=== PATIENT | male | born 1970 | race Caucasian/White ===

== ENCOUNTER 2017-12-28 10:25 | Inpatient (IN) | payer SELFPAY ==
[2017-12-28] MEDS ORDERED: NICARDIPINE HCL RTU, ISO-OS 20 MG/200 ML RTUINJ IV ONE (10:57)
[2017-12-28] MEDS ORDERED: NICARDIPINE HCL RTU, ISO-OS 20 MG/200 ML RTUINJ IV PRN ×2 (11:04→11:57)
--- NOTE | 2017-12-28 11:08 | RADIOLOGY REPORT (SQ) ---
EXAM DESCRIPTION: CT HEAD WITHOUT COMPLETED DATE/TIME: 12/28/2017 10:51 am REASON FOR STUDY: left sided weakness COMPARISON: None. TECHNIQUE: Axial images acquired through the brain without intravenous contrast. Images reviewed wi th bone, brain and subdural windows. Additional sagittal and coronal reconstructions were generated. Images stored on PACS. All CT scanners at this facility use dose modulation, iterative reconstruction, and/or weight based d osing when appropriate to reduce radiation dose to as low as reasonably achievable (ALARA). [facility]: Dose Right [facility]: CareDose [facility]: Dose Right [facility]: Teradose 4D [facility]: Smart CogniK RADIATION DOSE: CT Rad equipment meets quality standard of care and radiation dose reduction techniq ues were employed. CTDIvol: 53.2 mGy. DLP: 1017 mGy-cm. mGy. LIMITATIONS: None. FINDINGS: VENTRICLES: Normal size and contour. CEREBRUM: No masses. No hemorrhage. No midline shift. No evidence for acute infarction. Normal gra y/white matter differentiation. No areas of low density in the white matter. CEREBELLUM: No masses. No hemorrhage. No alteration of density. No evidence for acute infarction. EXTRAAXIAL SPACES: No fluid collections. No masses. ORBITS AND GLOBE: No intra- or extraconal masses. Normal contour of globe without masses. CALVARIUM: No fracture. PARANASAL SINUSES: No fluid or mucosal thickening. SOFT TISSUES: No mass or hematoma. OTHER: No other significant finding. IMPRESSION: NORMAL BRAIN CT WITHOUT CONTRAST. EVIDENCE OF ACUTE STROKE: NO. COMMENT: Pertinent positive or negative findings of the imaging study reported as a CRITICAL EXAM gaby FOSTER DO at11:02 on 12/28/2017. Category of Critical Exam: Stroke alert Quality ID # [id number]: Final reports with documentation of one or more dose reduction techniques (e.g., Au tomated exposure control, adjustment of the mA and/or kV according to patient size, use of iterative reconstruction technique) TECHNICAL DOCUMENTATION: JOB ID: [id number] ([employer])- All Rights Reserved Reading location - IP/workstation name: [email or web address]
--- NOTE | 2017-12-28 11:10 | ER Document Report ---
ED General - General Chief Complaint: Weakness Stated Complaint: LEFT SIDED WEAKNESS Time Seen by Provider: 12/28/17 11:04 Mode of Arrival: Ambulatory Information source: Patient Notes: Note: I met the patient and started my evaluation while the patient was in CT scan. He was brought to CT directly from triage. This is a 47-year-old man history of hypertension (noncompliant with medicines) we will woke up with a left leg cramp. Patient states shortly after he experienced left arm and left leg weakness. Patient denies headache or any speech problems. He is a right-handed dominant. He denies any chest pain, shortness of breath. Patient states that these symptoms started at 8:30 AM. He states that he came to the hospital with his . He states that his drove. He does report that he felt off balance because of the left-sided weakness. Patient denies chest pain, shortness of breath, headache. Occasions: None currently. He has been on lisinopril in the past. Cigarettes: Denies, he does smoke cigars Surgeries: Knee surgery, splenectomy [facility] physician: Dr. Madrid at [facility] TRAVEL OUTSIDE OF THE [place] IN LAST 30 DAYS: No - HPI Onset: Just prior to arrival Onset/Duration: Sudden Quality of pain: No pain Severity: None Pain Level: Denies Associated symptoms: denies: Chest pain, Fever, Shortness of breath Exacerbated by: Denies Relieved by: Denies Similar symptoms previously: No Recently seen / treated by doctor: No - Related Data Allergies/Adverse Reactions: No Known Allergies Allergy (Verified 12/28/17 10:26) Past Medical History - General Information source: Patient - Social History Smoking Status: Current Some Day Smoker Cigarette use (# per day): No Chew tobacco use (# tins/day): Yes - Cigars Smoking Education Provided: No Frequency of alcohol use: None Drug Abuse: None Lives with: Family Family History: Reviewed & Not Pertinent Patient has suicidal ideation: No Patient has homicidal ideation: No - Past Medical History Cardiac Medical History: Reports: Hx Hypertension Pulmonary Medical History: Reports: None EENT Medical History: Reports: None Neurological Medical History: Reports: None Endocrine Medical History: Reports: None Renal/ Medical History: Reports: None Malignancy Medical History: Reports None GI Medical History: Reports: None Musculoskeletal Medical History: Reports None Skin Medical History: Reports None Psychiatric Medical History: Reports: None Traumatic Medical History: Reports: Hx Spleen Laceration/Rupture Infectious Medical History: Reports: None Surgical Hx: Negative - Immunizations Immunizations up to date: No Hx Diphtheria, Pertussis, Tetanus Vaccination: Yes Hx Pneumococcal Vaccination: 02/20/15 Review of Systems - Review of Systems Constitutional: denies: Chills, Fever EENT: No symptoms reported Cardiovascular: No symptoms reported Respiratory: No symptoms reported Gastrointestinal: No symptoms reported Genitourinary: No symptoms reported Male Genitourinary: No symptoms reported Musculoskeletal: No symptoms reported Skin: No symptoms reported Hematologic/Lymphatic: No symptoms reported Neurological/Psychological: See HPI Physical Exam - Vital signs Vitals: Temp Pulse Resp BP Pulse Ox 97.6 F 94 16 215/137 H 97 12/28/17 10:31 12/28/17 10:31 12/28/17 10:31 12/28/17 10:31 12/28/17 10:31 Notes: Physical exam: GENERAL: Is a 47-year-old man, he is alert and oriented 3, he is in no acute distress. He is noted to be markedly hypertensive at 215/137. HEAD: Atraumatic, normocephalic. EYES: Pupils equal round and reactive to light, extraocular movements intact, sclera anicteric, conjunctiva are normal. ENT: TMs normal, nares patent, oropharynx clear without exudates. Moist mucous membranes. NECK: Normal range of motion, supple without obvious mass or JVD. LUNGS: Breath sounds clear to auscultation bilaterally and equal. No wheezes rales or rhonchi. HEART: Regular rate and rhythm without murmurs, rubs or gallops. ABDOMEN: Soft, normoactive bowel sounds. No tenderness to palpation. No guarding, no rebound. No masses appreciated. EXTREMITIES: Normal range of motion, no pitting or edema. No clubbing or cyanosis. NEUROLOGICAL: Cranial nerves II through XII grossly intact. Normal speech, he is alert and keenly responsive, he knows the month and his age, he is able to perform commands appropriately, his gaze is normal, his visual calvin are normal , there is no facial pallor palsy, he does have left sided arm and leg drift but they do not touch the bed, his right side is normal, there is no limb ataxia (finger to nose is good), there is no sensory deficit, his picture description, object naming and sentence reading is good, there is no dysarthria or extension. His NIH is 2. PSYCH: Normal mood, normal affect. SKIN: Warm, Dry, normal turgor, no rashes or lesions noted. Course - Re-evaluation Re-evalutation: 12/28/17 11:09 The patient is excluded from thrombolytics based upon marked hypertensive crisis. He is being placed on IV nicardipine. 12/28/17 13:22 Patient was placed on IV nicardipine and the blood pressure was weaned down. Eventually, the drip was stopped and he was started on oral medicine. He currently denies any headache.. EKG is sinus rhythm with evidence just of of LVH which is not surprising given his untreated hypertension. Patient is to be admitted to the hospital. I have discussed the case with Dr. Bowman who will admit the patient to the [facility]. - Vital Signs Vital signs: Temp Pulse Resp BP Pulse Ox 97.6 F 93 16 130/77 H 94 12/28/17 10:31 12/28/17 17:25 12/28/17 18:11 12/28/17 18:11 12/28/17 18:11 - Laboratory Result Diagrams: 12/28/17 10:56 12/28/17 10:56 Laboratory results interpreted by me: 12/28/17 12/28/17 12/28/17 10:53 10:56 10:56 WBC 13.3 H Absolute Neutrophils 8.5 H BUN 26 H Creatinine 1.44 H Est GFR (Non-Af Amer) 53 L Glucose 149 H POC Glucose 144 H Creatine Kinase 302 H CK-MB (CK-2) Total Protein 8.5 H 12/28/17 10:56 WBC Absolute Neutrophils BUN Creatinine Est GFR (Non-Af Amer) Glucose POC Glucose Creatine Kinase CK-MB (CK-2) 4.56 H Total Protein - Diagnostic Test Radiology reviewed: Image reviewed, Reports reviewed - Head CT shows no bleed. Chest x-ray is clear. - EKG Interpretation by Me Rate: Normal Rhythm: NSR - EKG shows normal sinus rhythm with a ventricular rate of 89, ST/T- wave changes consistent with LVH Critical Care Note - Critical Care Note Total time excluding time spent on procedures (mins): 60 Discharge - Discharge Clinical Impression: Hypertensive emergency, CVA Condition: Stable Disposition: ADMITTED INPATIENT Admitting Provider: Hospitalist - Dr bowman Unit Admitted: [facility]
--- NOTE | 2017-12-28 11:11 | RADIOLOGY REPORT (SQ) ---
EXAM DESCRIPTION: CHEST SINGLE VIEW COMPLETED DATE/TIME: 12/28/2017 10:41 am REASON FOR STUDY: left sided weakness COMPARISON: None. EXAM PARAMETERS: NUMBER OF VIEWS: One view. TECHNIQUE: Single frontal radiographic view of the chest acquired. RADIATION DOSE: NA LIMITATIONS: None. FINDINGS: LUNGS AND PLEURA: No opacities, masses or pneumothorax. No pleural effusion. MEDIASTINUM AND HILAR STRUCTURES: No masses. Contour normal. HEART AND VASCULAR STRUCTURES: Heart normal in size. Normal vasculature. BONES: No acute findings. HARDWARE: None in the chest. OTHER: No other significant finding. IMPRESSION: NO ACUTE RADIOGRAPHIC FINDING IN THE CHEST. TECHNICAL DOCUMENTATION: JOB ID: [id number] [employer]- All Rights Reserved Reading location - IP/workstation name: [email or web address]
[2017-12-28 11:18] LABS: ABSOLUTE BASOPHILS # (AUTO) 0.1 10^3/uL (0.0-0.2); ABSOLUTE EOSINOPHILS # (AUTO) 0.2 10^3/uL (0.0-0.6); ABSOLUTE LYMPHOCYTES (AUTO) 3.2 10^3/uL (0.5-4.7); ABSOLUTE MONOCYTES (AUTO) 1.4 10^3/uL (0.1-1.4); ABSOLUTE NEUT (AUTO) 8.5 10^3/uL (1.7-8.2); BASOPHILS % (AUTO) 0.4 % (0-2); EOSINOPHILS % (AUTO) 1.4 % (0-6); HEMATOCRIT 43.5 % (37.9-51.0); HEMOGLOBIN 14.8 g/dL (13.5-17.0); LYMPHOCYTES % (AUTO) 24.2 % (13-45); MEAN CORPUSCULAR HEMOGLOBIN 30.7 pg (27.0-33.4); MEAN CORPUSCULAR VOLUME 90 fl (80-97); MONOCYTES % (AUTO) 10.3 % (3-13); PLATELET COUNT 308 10^3/uL (150-450); RED BLOOD COUNT 4.81 10^6/uL (4.35-5.55); RED CELL DISTRIBUTION WIDTH 13.3 % (11.5-14.0); SEGMENTED NEUTROPHILS % (AUTO) 63.7 % (42-78); TOTAL CELLS COUNTED % (AUTO) 100 %; WHITE BLOOD COUNT 13.3 10^3/uL (4.0-10.5)
[2017-12-28 11:21] LABS: INTERNATIONAL RATION (INR) 0.89; PROTHROMBIN TIME 12.5 SEC (11.4-15.4)
[2017-12-28 11:22] LABS: PARTIAL THROMBOPLASTIN TIME 29.3 SEC (23.5-35.8)
[2017-12-28 11:45] LABS: ALANINE AMINOTRANSFERASE 44 U/L (21-72); ALBUMIN 4.7 g/dL (3.5-5.0); ALKALINE PHOSPHATASE 81 U/L (38-126); ANION GAP 12 (5-19); ASPARTATE AMINO TRANSFERASE 36 U/L (17-59); BILIRUBIN,DIRECT 0.3 mg/dL (0.0-0.4); BILIRUBIN,TOTAL 0.6 mg/dL (0.2-1.3); BLOOD UREA NITROGEN 26 mg/dL (7-20); CALCIUM 9.3 mg/dL (8.4-10.2); CARBON DIOXIDE 29 mmol/L (22-30); CHLORIDE 98 mmol/L (98-107); CREATINE KINASE 302 U/L (55-170); GLUCOSE 149 mg/dL (75-110); POTASSIUM 3.6 mmol/L (3.6-5.0); SODIUM 139.2 mmol/L (137-145); TOTAL PROTEIN 8.5 g/dL (6.3-8.2)
[2017-12-28 11:57] LABS: CREATINE KINASE MB 4.56 ng/mL (<4.55)
[2017-12-28 11:58] LABS: TROPONIN I 0.043 ng/mL
[2017-12-28] MEDS ORDERED: LORAZEPAM 1 MG TABLET PO ONE (12:16)
[2017-12-28] MEDS ORDERED: DILTIAZEM HCL 60 MG TABLET PO ONE (12:17)
[2017-12-28] MEDS ORDERED: ONDANSETRON 4 MG TAB.RAPDIS PO PRN (14:05)
[2017-12-28] MEDS ORDERED: DOCUSATE SODIUM 100 MG CAPSULE PO PRN (14:05)
[2017-12-28] MEDS ORDERED: TEMAZEPAM 15 MG CAPSULE PO PRN (14:05)
[2017-12-28] MEDS ORDERED: ACETAMINOPHEN 650 MG SUPP.RECT PR PRN (14:05)
[2017-12-28] MEDS ORDERED: ACETAMINOPHEN 325 MG TABLET PO PRN (14:05)
[2017-12-28] MEDS ORDERED: MAGNESIUM HYDROXIDE SUSP 30 ML UDCUP PO PRN (14:05)
--- NOTE | 2017-12-28 14:13 | RADIOLOGY REPORT (SQ) ---
EXAM DESCRIPTION: MRI HEAD WITHOUT COMPLETED DATE/TIME: 12/28/2017 1:57 pm REASON FOR STUDY: left sided weakness COMPARISON: None. TECHNIQUE: Multiplanar imaging includes non-contrasted T1, T2, FLAIR, and Diffusion with ADC map seq uences. Images stored on PACS. LIMITATIONS: None. FINDINGS: ANATOMY: No anomalies. Normal vascular flow voids. Pituitary fossa normal. CSF SPACES: Normal in size and contour. No hemorrhage. CEREBRUM: A few high-signal intensity lesions scattered throughout the white matter on FLAIR imaging with distribution suggesting chronic micro-vascular ischemic change. Sulci and gyri normal in size a nd contour. No evidence of hemorrhage, mass or extraaxial fluid collection. POSTERIOR FOSSA: No signal alteration. No hemorrhage. No edema, masses or mass effect. Internal mustapha tory canals, cerebello-pontine angles, mastoids normal. DIFFUSION: Subcentimeter oval focus of increased signal on diffusion in the right thalamus with corre sponding decreased signal on ADC map. ORBITS: No masses. Globes normal. PARANASAL SINUSES: No fluid levels. Mucosa normal. OTHER: No other significant finding. IMPRESSION: Acute, nonhemorrhagic lacunar infarct right thalamus. EVIDENCE OF ACUTE STROKE: YES. 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 TECHNICAL DOCUMENTATION: JOB ID: [id number] [employer]- All Rights Reserved Reading location - IP/workstation name: [email or web address]
[2017-12-28] MEDS ORDERED: NITROGLYCERIN 2% OINTMENT 1 GM PACKET TP ONE (14:14)
[2017-12-28] MEDS ORDERED: NITROGLYCERIN 2% OINTMENT 1 GM PACKET ONE (14:15)
[2017-12-28] MEDS ORDERED: METOPROLOL SUCCINATE 50 MG TAB.SR.24H PO ONE (14:22)
[2017-12-28] MEDS ORDERED: LOSARTAN POTASSIUM 50 MG TABLET PO ONE (14:22)
[2017-12-28] MEDS: HYDRALAZINE HCL 50 MG TABLET PO SCH (16:06)
[2017-12-28] MEDS: AMLODIPINE BESYLATE 10 MG TABLET PO SCH (16:06)
[2017-12-28] MEDS: TRAMADOL HCL 50 MG TABLET PO PRN ×2 (16:12→21:19)
--- NOTE | 2017-12-28 16:23 | EKG REPORT ---
SEVERITY:- ABNORMAL ECG - SINUS RHYTHM LEFT ATRIAL ABNORMALITY LVH WITH SECONDARY REPOLARIZATION ABNORMALITY BORDERLINE PROLONGED QT INTERVAL : Confirmed by: Santo Cash MD 28-Dec-2017 16:23:02
--- NOTE | 2017-12-28 17:45 | PDOC H&P ---
History of Present Illness Admission Date/PCP: 12/28/17 13:44 Patient complains of: Left sided weakness History of Present Illness: LUIS M VILLALTA JR is a 47 year old male who presented to the emergency room via private vehicle with the history of acute onset of left sided weakness. He noticed weakness that had developed after he had been up out of bed several times this morning. His symptoms were of sudden onset and have been continuously present since he first noticed them. His primary symptom is a severe weakness of his left upper extremity and he has, concurrent weakness in his left lower extremity but not of such great severity. He had noticed some cramping in his left lower extremity during the 2 or 3 times that he had gotten up to go to the bathroom at home this morning. He has not identified any aggravating or ameliorating factors for his weakness and denies prior episodes of similar symptoms. The weakness has not seemed to spread to any other part of his body and he has not noted any associated symptoms especially numbness or tingling, speech disturbances, memory or recall problems, difficulty with expression, headache and neck pain. He also specifically denies any recent injuries to his head neck or back. He does admit that he has a history of hypertension and has not been taking medication for this for quite some time; in the past he has taken lisinopril and Micardis. In the emergency room his CT scan was negative for acute bleed and his MRI was positive for an acute right thalamic infarct, in the distribution of the right posterior cerebral artery. His initial blood pressures in the emergency room were in the range of 250/150 and he was treated with a nicardipine drip his pressures came into reasonably good control in the nicardipine drip was discontinued in favor of initiating oral therapy. 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 Lives with: Family Smoking Status: Former Smoker Frequency of Alcohol Use: Rare Hx Recreational Drug Use: No Hx Prescription Drug Abuse: No Family History Family History: Hypertension Parental Family History Reviewed: Yes Children Family History Reviewed: No Sibling(s) Family History Reviewed.: Yes Medication/Allergy Home Medications: Aspirin [Aspirin EC] 81 mg PO DAILY 12/28/17 Ibuprofen [Motrin 800 mg Tablet] 800 mg PO TID 12/28/17 Allergies/Adverse Reactions: No Known Allergies Allergy (Verified 12/28/17 10:26) Review of Systems Constitutional: ABSENT: chills, fatigue, fever(s), headache(s) Eyes: ABSENT: visual disturbances, other - Eye pain Ears: ABSENT: hearing changes, other - Ear pain Nose, Mouth, and Throat: ABSENT: mouth pain, sore throat, vertigo Cardiovascular: ABSENT: chest pain, dyspnea on exertion, edema, orthropnea, palpitations Respiratory: ABSENT: cough, dyspnea, hemoptysis Gastrointestinal: ABSENT: abdominal pain, diarrhea, dysphagia, heartburn, hematochezia, melena, nausea, vomiting Genitourinary: ABSENT: dysuria, hematuria Musculoskeletal: PRESENT: muscle weakness - Left upper and lower extremities per history of present illness. ABSENT: back pain, deformity, joint swelling Integumentary: ABSENT: pruritus, rash Neurological: PRESENT: focal weakness - Left upper and lower extremities. ABSENT: abnormal speech, confusion, convulsions, frequent falls, memory loss, numbness, paresthesias, syncope, tingling, tremor(s), vertigo Psychiatric: ABSENT: anxiety, depression Endocrine: ABSENT: cold intolerance, heat intolerance, polydipsia, polyphagia Hematologic/Lymphatic: ABSENT: easy bleeding, easy bruising Allergic/Immunologic: ABSENT: seasonal rhinorrhea, other - Insect bite allergies Physical Exam Vital Signs: Temp Pulse Resp BP Pulse Ox 97.6 F 97 14 169/116 H 91 L 12/28/17 10:31 12/28/17 12:18 12/28/17 15:31 12/28/17 15:31 12/28/17 15:31 General appearance: PRESENT: no acute distress, cooperative Head exam: PRESENT: atraumatic, normocephalic Eye exam: PRESENT: conjunctiva pink, EOMI, PERRLA. ABSENT: conjunctival injection, nystagmus, scleral icterus Ear exam: PRESENT: normal external ear exam. ABSENT: bleeding, drainage Mouth exam: PRESENT: moist, neck supple Neck exam: PRESENT: full ROM. ABSENT: JVD, meningismus, thyromegaly, tracheal deviation Respiratory exam: PRESENT: clear to auscultation irish, symmetrical, unlabored Cardiovascular exam: PRESENT: RRR. ABSENT: clicks, diastolic murmur, gallop, rubs, systolic murmur Pulses: PRESENT: normal carotid pulses, normal radial pulses, normal dorsalis pedis pul Vascular exam: PRESENT: normal capillary refill. ABSENT: pallor GI/Abdominal exam: PRESENT: normal bowel sounds, soft. ABSENT: tenderness Extremities exam: ABSENT: joint swelling, pedal edema Musculoskeletal exam: PRESENT: full ROM, normal inspection Neurological exam: PRESENT: alert, oriented to person, oriented to place, oriented to time, oriented to situation, CN II-XII grossly intact, motor sensory deficit - Significant weakness of the left upper and lower extremities he can raise both the left arm and the left leg but significant drift occurs before the count of 5. Psychiatric exam: PRESENT: appropriate affect, normal mood Skin exam: ABSENT: jaundice, rash, urticaria Results EKG Comments: Normal sinus rhythm, left ventricular hypertrophy with repolarization changes Impressions: Head CT 12/28/17 10:33 IMPRESSION: NORMAL BRAIN CT WITHOUT CONTRAST. EVIDENCE OF ACUTE STROKE: NO. Chest X-Ray 12/28/17 10:34 IMPRESSION: NO ACUTE RADIOGRAPHIC FINDING IN THE CHEST. Head MRI 12/28/17 11:45 IMPRESSION: Acute, nonhemorrhagic lacunar infarct right thalamus. EVIDENCE OF ACUTE STROKE: YES. RIGHT ASSET PROTECTION LEAD. Assessment & Plan - Diagnosis (1) Acute right arterial ischemic stroke, ASSET PROTECTION LEAD (posterior cerebral artery) Is this a current diagnosis for this admission?: Yes Plan: Initiate acute ischemic stroke treatment plan in the stroke unit. (2) Accelerated hypertension Is this a current diagnosis for this admission?: Yes Plan: Initial treatment with nicardipine drip and subsequent oral therapy. (3) Hypokalemia Is this a current diagnosis for this admission?: Yes Plan: Repletion via IV replacement and oral replacement in the future. - Time Time Spent: Greater than 70 Minutes Medications reviewed and adjusted accordingly: Yes
[2017-12-28 18:25] LABS: CREATINE KINASE MB 2.92 ng/mL (<4.55); TROPONIN I 0.041 ng/mL
[2017-12-28] MEDS: HEPARIN SOD (PORCINE) 5,000 UNIT/ML 1 ML SYRINGE SUBCUT SCH (21:27)
[2017-12-28] MEDS: FAMOTIDINE 20 MG TABLET PO SCH (21:27)
[2017-12-29 00:14] LABS: CREATINE KINASE MB 2.46 ng/mL (<4.55); TROPONIN I 0.052 ng/mL
[2017-12-29 06:31] LABS: CHOLESTEROL 235.21 mg/dL (0-200); TRIGLYCERIDES 384 mg/dL (<150)
[2017-12-29] MEDS: HYDRALAZINE HCL 50 MG TABLET PO SCH ×4 (06:38→22:15)
[2017-12-29] MEDS: TRAMADOL HCL 50 MG TABLET PO PRN (06:40)
[2017-12-29] MEDS: HEPARIN SOD (PORCINE) 5,000 UNIT/ML 1 ML SYRINGE SUBCUT SCH ×3 (06:41→22:15)
[2017-12-29 06:42] LABS: DIRECT LDL 125 mg/dL (<100)
[2017-12-29 06:44] LABS: CREATINE KINASE MB 2.22 ng/mL (<4.55); TROPONIN I 0.049 ng/mL
[2017-12-29 06:49] LABS: VLDL CHOLESTEROL 76.8 mg/dL (10-31)
[2017-12-29] MEDS ORDERED: ONDANSETRON 4 MG TAB.RAPDIS PO PRN (09:30)
[2017-12-29] MEDS: AMLODIPINE BESYLATE 10 MG TABLET PO SCH (10:59)
[2017-12-29] MEDS: FAMOTIDINE 20 MG TABLET PO SCH ×2 (10:59→22:15)
[2017-12-29] MEDS: SPIRONOLACTONE 25 MG TABLET PO SCH (10:59)
[2017-12-29] MEDS: LOSARTAN POTASSIUM 50 MG TABLET PO SCH (11:00)
[2017-12-29] MEDS: ASPIRIN 81 MG TABLET, ENT COATED PO SCH (11:00)
[2017-12-29] MEDS: CLOPIDOGREL BISULFATE 75 MG TABLET PO SCH (11:00)
[2017-12-29] MEDS: METOPROLOL SUCCINATE 50 MG TAB.SR.24H PO SCH (11:00)
[2017-12-29] MEDS: ATORVASTATIN CALCIUM 80 MG TABLET PO SCH (11:05)
--- NOTE | 2017-12-29 13:12 | RADIOLOGY REPORT (SQ) ---
EXAM DESCRIPTION: SHOULDER LEFT 2 OR MORE VIEWS COMPLETED DATE/TIME: 12/29/2017 12:52 pm REASON FOR STUDY: fall yesterday, starting to hurt COMPARISON: None. NUMBER OF VIEWS: Three views. TECHNIQUE: Internal rotation, external rotation, and Y view images acquired of the left shoulder. LIMITATIONS: None. FINDINGS: MINERALIZATION: Normal. BONES: No acute fracture or dislocation. No worrisome bone lesions. JOINTS: Mild degenerative changes at the acromioclavicular joint. VISUALIZED LUNGS AND RIBS: No pneumothorax. No rib fracture. SOFT TISSUES: No radiopaque foreign body. OTHER: No other significant finding. IMPRESSION: 1. No acute osseous findings. 2. Mild acromioclavicular joint arthrosis. 3. If symptoms are persistent, follow-up examination for re-evaluation suggested. TECHNICAL DOCUMENTATION: JOB ID: [id number] [employer]- All Rights Reserved Reading location - IP/workstation name: [email or web address]
--- NOTE | 2017-12-29 17:45 | PDOC PROGRESS REPORT ---
Subjective Progress Note for:: 12/29/17 Subjective:: ELLIOT VILLALTA JR is a 47 year old male who presented to the emergency room via private vehicle with the history of acute onset of left sided weakness. He noticed weakness that had developed after he had been up out of bed several times this morning. His symptoms were of sudden onset and have been continuously present since he first noticed them. His primary symptom is a severe weakness of his left upper extremity and he has, concurrent weakness in his left lower extremity but not of such great severity. He had noticed some cramping in his left lower extremity during the 2 or 3 times that he had gotten up to go to the bathroom at home this morning. He has not identified any aggravating or ameliorating factors for his weakness and denies prior episodes of similar symptoms. The weakness has not seemed to spread to any other part of his body and he has not noted any associated symptoms especially numbness or tingling, speech disturbances, memory or recall problems, difficulty with expression, headache and neck pain. He also specifically denies any recent injuries to his head neck or back. He does admit that he has a history of hypertension and has not been taking medication for this for quite some time; in the past he has taken lisinopril and Micardis. In the emergency room his CT scan was negative for acute bleed and his MRI was positive for an acute right thalamic infarct, in the distribution of the right posterior cerebral artery. His initial blood pressures in the emergency room were in the range of 250/150 and he was treated with a nicardipine drip his pressures came into reasonably good control in the nicardipine drip was discontinued in favor of initiating oral therapy. 12/29/17: Elliot states he is doing pretty well today he has noticed little or no change in his left-sided weakness especially in his upper extremity. His left lower extremity may have improved slightly. He denies headache, nausea, vomiting, diarrhea, fever, chills, chest pain, dyspnea, palpitations and syncope. His sensation continues to be equal and intact bilaterally in all of his extremities. He is somewhat encouraged about the idea of going to acute rehab and a consultation for this will be placed. Reason For Visit: ACUTE CEREBROVASCULAR INSUFFICIENCY Physical Exam Vital Signs: Temp Pulse Resp BP Pulse Ox 97.8 F 71 18 124/87 H 94 12/29/17 16:32 12/29/17 16:32 12/29/17 16:32 12/29/17 16:32 12/29/17 16:32 Intake & Output 12/28/17 12/29/17 12/30/17 06:59 06:59 06:59 Intake Total 300 943 Output Total 0 500 Balance 300 443 Weight 118.6 kg General appearance: PRESENT: no acute distress, cooperative Head exam: PRESENT: atraumatic, normocephalic Eye exam: PRESENT: conjunctiva pink. ABSENT: conjunctival injection Ear exam: PRESENT: normal external ear exam. ABSENT: bleeding, drainage Mouth exam: PRESENT: moist, neck supple, tongue midline Neck exam: ABSENT: thyromegaly, tracheal deviation Respiratory exam: PRESENT: clear to auscultation irish, symmetrical, unlabored Cardiovascular exam: PRESENT: RRR. ABSENT: clicks, gallop, rubs Vascular exam: PRESENT: normal capillary refill. ABSENT: pallor GI/Abdominal exam: PRESENT: normal bowel sounds, soft Extremities exam: ABSENT: joint swelling, pedal edema Musculoskeletal exam: PRESENT: other - Left upper extremity with moderate paresis noted, left lower extremity with a mild paresis noted. Evaluation clinically appears to be unchanged from evaluation performed approximately 24 hours ago.. ABSENT: deformity, dislocation Neurological exam: PRESENT: alert, awake, oriented to person, oriented to place , oriented to time, oriented to situation, CN II-XII grossly intact, motor sensory deficit - See comments in extremities above. Psychiatric exam: PRESENT: appropriate affect, normal mood Skin exam: ABSENT: jaundice, rash, urticaria Results Laboratory Results: 12/29/17 05:40 Triglycerides 384 H Cholesterol 235.21 H LDL Cholesterol Direct 125 H VLDL Cholesterol 76.8 H HDL Cholesterol 32 L 12/28/17 12/28/17 12/28/17 17:35 17:35 23:40 Creatine Kinase 207 H 178 H CK-MB (CK-2) 2.92 Troponin I 0.041 12/28/17 12/29/17 12/29/17 23:40 05:40 05:40 Creatine Kinase 182 H CK-MB (CK-2) 2.46 2.22 Troponin I 0.052 0.049 Impressions: Head CT 12/28/17 10:33 IMPRESSION: NORMAL BRAIN CT WITHOUT CONTRAST. EVIDENCE OF ACUTE STROKE: NO. Chest X-Ray 12/28/17 10:34 IMPRESSION: NO ACUTE RADIOGRAPHIC FINDING IN THE CHEST. Head MRI 12/28/17 11:45 IMPRESSION: Acute, nonhemorrhagic lacunar infarct right thalamus. EVIDENCE OF ACUTE STROKE: YES. 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 Shoulder X-Ray 12/29/17 00:00 IMPRESSION: 1. No acute osseous findings. 2. Mild acromioclavicular joint arthrosis. 3. If symptoms are persistent, follow-up examination for re-evaluation suggested. 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 Obtain consultation with acute rehab, Dr. Alcaraz will be seeing him tomorrow. (2) Accelerated hypertension Is this a current diagnosis for this admission?: Yes Plan: Initial treatment with nicardipine drip and subsequent oral therapy has established excellent control of the patient's hypertension. (3) Hypokalemia Is this a current diagnosis for this admission?: Yes Plan: Repletion via IV replacement has created a euvolemic state. Oral replacement as needed if hypokalemia recurs. - Time Time Spent with patient: 25-34 minutes Medications reviewed and adjusted accordingly: Yes Anticipated discharge: Acute Rehab Within: when bed available
--- NOTE | 2017-12-29 22:58 | EKG REPORT ---
SEVERITY:- ABNORMAL ECG - SINUS RHYTHM PROBABLE LEFT ATRIAL ABNORMALITY NONSPECIFIC INTRAVENTRICULAR CONDUCTION DELAY LVH WITH SECONDARY REPOLARIZATION ABNORMALITY : Confirmed by: Denton Vega 29-Dec-2017 22:57:19
[2017-12-30] MEDS: HYDRALAZINE HCL 50 MG TABLET PO SCH ×3 (05:37→22:34)
[2017-12-30] MEDS: HEPARIN SOD (PORCINE) 5,000 UNIT/ML 1 ML SYRINGE SUBCUT SCH ×3 (05:37→22:34)
--- NOTE | 2017-12-30 09:01 | PDOC CONSULTATION ---
History of Present Illness Admission Date/PCP: 12/28/17 13:44 Patient complains of: Left shoulder pain History of Present Illness: LUIS M VILLALTA JR is a 47 year old male was admitted to the hospital with left -sided weakness secondary to right sided stroke. Patient states at the time of his stroke he sustained a fall onto his left shoulder. Since then he has been having soreness mainly on the top of his shoulder. He has limited motion of the extremity but notes with any motion the pain is worse. Pain at 6/10 at times. Describes as a sharp stabbing pain. Past Medical History Cardiac Medical History: Reports: Hypertension Pulmonary Medical History: Reports: None EENT Medical History: Reports: None Neurological Medical History: Reports: None Endocrine Medical History: Reports: None Renal/ Medical History: Reports: None Malignancy Medical History: Reports: None GI Medical History: Reports: None Musculoskeltal Medical History: Reports: None Skin Medical History: Reports: None Psychiatric Medical History: Reports: None Denies: Depression Traumatic Medical History: Reports: None Hematology: Reports: None Infectious Medical History: Reports: None Social History Lives with: Family Smoking Status: Current Some Day Smoker Cigarettes Packs Per Day: 4 Number of Years Smokin Last Time Smoked: 5 years ago Frequency of Alcohol Use: Occasional Hx Recreational Drug Use: Yes Drugs: Marijuana Hx Prescription Drug Abuse: No - Advance Directive Resuscitation Status: Full Code Family History Family History: Reviewed & Not Pertinent Parental Family History Reviewed: No Children Family History Reviewed: No Sibling(s) Family History Reviewed.: No Medication/Allergy Home Medications: Aspirin [Aspirin EC] 81 mg PO DAILY 12/28/17 Ibuprofen [Motrin 800 mg Tablet] 800 mg PO TID 12/28/17 Allergies/Adverse Reactions: No Known Allergies Allergy (Verified 12/28/17 10:26) Review of Systems Constitutional: ABSENT: chills, fever(s), headache(s), weight gain, weight loss Eyes: ABSENT: visual disturbances Ears: ABSENT: hearing changes Cardiovascular: ABSENT: chest pain, dyspnea on exertion, edema, orthropnea, palpitations Respiratory: ABSENT: cough, hemoptysis Gastrointestinal: ABSENT: abdominal pain, constipation, diarrhea, hematemesis, hematochezia, nausea, vomiting Genitourinary: ABSENT: dysuria, hematuria Musculoskeletal: PRESENT: as per HPI Integumentary: ABSENT: rash, wounds Neurological: PRESENT: as per HPI, focal weakness, weakness. ABSENT: abnormal gait, abnormal speech, confusion, dizziness, syncope Psychiatric: ABSENT: anxiety, depression, homidical ideation, suicidal ideation Endocrine: ABSENT: cold intolerance, heat intolerance, menstrual abnormalities, polydipsia, polyuria Hematologic/Lymphatic: ABSENT: easy bleeding, easy bruising, lymphadenopathy Physical Exam Vital Signs: Temp Pulse Resp BP Pulse Ox 97.8 F 78 16 137/96 H 95 12/30/17 07:36 12/30/17 07:36 12/30/17 07:36 12/30/17 07:36 12/30/17 07:36 Intake & Output 12/29/17 12/30/17 12/31/17 06:59 06:59 06:59 Intake Total 300 1598 411 Output Total 0 2300 Balance 300 -702 411 Weight 118.6 kg 119.1 kg General appearance: PRESENT: no acute distress, well-developed, well-nourished Head exam: PRESENT: atraumatic, normocephalic Eye exam: PRESENT: conjunctiva pink, EOMI, PERRLA. ABSENT: scleral icterus Ear exam: PRESENT: normal external ear exam Mouth exam: PRESENT: moist, tongue midline Neck exam: PRESENT: full ROM. ABSENT: carotid bruit, JVD, lymphadenopathy, thyromegaly Respiratory exam: PRESENT: unlabored Cardiovascular exam: PRESENT: RRR. ABSENT: diastolic murmur, rubs, systolic murmur Pulses: PRESENT: normal dorsalis pedis pul, +2 pedal pulses bilateral Vascular exam: PRESENT: normal capillary refill GI/Abdominal exam: PRESENT: normal bowel sounds, soft. ABSENT: distended, guarding, mass, organolmegaly, rebound, tenderness Rectal exam: PRESENT: deferred Musculoskeletal exam: PRESENT: other - Left shoulder: Patient is limited motion secondary to acute stroke. No range of motion of the wrist or elbow. Tenderness to palpation along the AC joint anteriorly no evidence of gross deformity. Mild swelling on the AC joint no effusion. Unable to fully assess rotator cuff secondary to patient's left-sided weakness. Neurological exam: PRESENT: alert, awake, oriented to person, oriented to place , oriented to time, oriented to situation, other - Left-sided weakness with facial droop on the left.. ABSENT: motor sensory deficit Psychiatric exam: PRESENT: appropriate affect, normal mood. ABSENT: homicidal ideation, suicidal ideation Skin exam: PRESENT: dry, intact, warm. ABSENT: cyanosis, rash Results Laboratory Results: 12/28/17 12/28/17 12/28/17 17:35 17:35 23:40 Creatine Kinase 207 H 178 H CK-MB (CK-2) 2.92 Troponin I 0.041 12/28/17 12/29/17 12/29/17 23:40 05:40 05:40 Creatine Kinase 182 H CK-MB (CK-2) 2.46 2.22 Troponin I 0.052 0.049 Impressions: Head CT 12/28/17 10:33 IMPRESSION: NORMAL BRAIN CT WITHOUT CONTRAST. EVIDENCE OF ACUTE STROKE: NO. Chest X-Ray 12/28/17 10:34 IMPRESSION: NO ACUTE RADIOGRAPHIC FINDING IN THE CHEST. Head MRI 12/28/17 11:45 IMPRESSION: Acute, nonhemorrhagic lacunar infarct right thalamus. EVIDENCE OF ACUTE STROKE: YES. RIGHT CLIENT LIAISON. Shoulder X-Ray 12/29/17 00:00 IMPRESSION: 1. No acute osseous findings. 2. Mild acromioclavicular joint arthrosis. 3. If symptoms are persistent, follow-up examination for re-evaluation suggested. Status: Image reviewed by me - I have reviewed patient's radiographs which demonstrate moderate degenerative changes of the AC joint. No evidence of acute fracture. Assessment & Plan - Diagnosis (1) Arthrosis of left acromioclavicular joint Is this a current diagnosis for this admission?: Yes Plan: Patient has evidence of AC joint arthritis given his fall history onto the left shoulder he likely also sustained a concomitant AC joint sprain. At this point I have recommended pain control along with heat and ice. If patient's pain persists will consider possible AC joint injection as an outpatient.
[2017-12-30] MEDS: ASPIRIN 81 MG TABLET, ENT COATED PO SCH (09:22)
[2017-12-30] MEDS: SPIRONOLACTONE 25 MG TABLET PO SCH (09:22)
[2017-12-30] MEDS: METOPROLOL SUCCINATE 50 MG TAB.SR.24H PO SCH (09:22)
[2017-12-30] MEDS: LOSARTAN POTASSIUM 50 MG TABLET PO SCH (09:22)
[2017-12-30] MEDS: AMLODIPINE BESYLATE 10 MG TABLET PO SCH (09:22)
[2017-12-30] MEDS: FAMOTIDINE 20 MG TABLET PO SCH ×2 (09:23→22:34)
[2017-12-30] MEDS: CLOPIDOGREL BISULFATE 75 MG TABLET PO SCH (09:23)
--- NOTE | 2017-12-30 10:56 | PDOC CONSULTATION ---
Consultation Consult Date: 12/30/17 Consult reason:: Evaluation for admission to acute inpatient rehabilitation. History of Present Illness Admission Date/PCP: 12/28/17 13:44 History of Present Illness: ELLIOT VILLALTA JR is a 47-year-old male with past medical history of hypertension admitted to [facility] on 12/28/2017 after presenting with sudden onset of left-sided weakness and being found to have elevated blood pressure of 250/150. CT head demonstrated no acute findings; EKG demonstrated normal sinus rhythm at 89 bpm with LVH, secondary repolarization abnormality, and borderline prolonged QT interval; an MRI of the brain demonstrated an acute , nonhemorrhagic lacunar infarct in the right thalamus. Laboratory studies demonstrated a hemoglobin A1c of 5.7%, total cholesterol of 235, LDL of 125, and triglycerides of 384. The patient's accelerated hypertension was initially treated with a nicardipine drip, which was later converted to oral management with amlodipine, hydralazine, losartan, Toprol-XL, and spironolactone. The patient was previously on aspirin 81 mg daily, and he is currently being treated with aspirin 81 mg daily, Plavix 75 mg daily, and atorvastatin 80 mg nightly for secondary stroke prophylaxis. Of note, while the patient was attempting to transfer either onto or off of the MRI table, he sustained a fall onto his left side and complained of left shoulder pain. Left shoulder x-ray demonstrated no acute osseous findings and mild acromioclavicular joint arthrosis. He was evaluated by orthopedic surgery Dr. Clay Arias, who determined that the patient likely has AC joint arthritis and a concomitant AC joint sprain. The patient has recommended pain control along with heat and ice as well as possible AC joint injection as an outpatient if the pain persists. Physical medicine and rehabilitation consultation was requested to evaluate the patient for admission to acute inpatient rehabilitation. Today, the patient was seen and examined with his daughter, her boyfriend, and his nurse at bedside. The patient complains of persistent left-sided weakness as well as mild soreness of the left shoulder and wrist. His last bowel movement was 3 days ago, prior to admission and he denies any trouble with urination. Past Medical History Cardiac Medical History: Reports: Hypertension Pulmonary Medical History: Reports: None EENT Medical History: Reports: None Neurological Medical History: Reports: None Endocrine Medical History: Reports: None Renal/ Medical History: Reports: None Malignancy Medical History: Reports: None GI Medical History: Reports: None Musculoskeltal Medical History: Reports: None Skin Medical History: Reports: None Psychiatric Medical History: Reports: None Denies: Depression Traumatic Medical History: Reports: None Hematology: Reports: None Infectious Medical History: Reports: None Past Surgical History Past Surgical History: Reports: None Social History Lives with: Family Smoking Status: Current Some Day Smoker Cigarettes Packs Per Day: 4 Number of Years Smokin Last Time Smoked: 5 years ago Frequency of Alcohol Use: Occasional Hx Recreational Drug Use: Yes Drugs: Marijuana Hx Prescription Drug Abuse: No Past Social History Note: Elliot Villalta Junior lives with his in a 1 level home with 4 steps to enter and 0 steps to the bedroom and bathroom. 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 He denies drug use. Functional Status: Active and independent with mobility and all ADLs. Ambulates without an assist device. Current Functional Status: Per therapy notes, the patient currently requires minimum assistance for bed mobility, moderate assistance for transfers, minimum to moderate assistance of 1-2 people for standing with a hemiwalker, moderate assistance for upper body dressing, and dependent assistance for lower body dressing. He is currently on a regular solids with thin liquids diet. - Advance Directive Resuscitation Status: Full Code Family History Family History: Reviewed & Not Pertinent Family History: His mother has diabetes mellitus, and his father had a myocardial infarction and possibly diabetes mellitus. Parental Family History Reviewed: Yes Children Family History Reviewed: No Sibling(s) Family History Reviewed.: No Medication/Allergy Home Medications: Aspirin [Aspirin EC] 81 mg PO DAILY 12/28/17 Ibuprofen [Motrin 800 mg Tablet] 800 mg PO TID 12/28/17 Allergies/Adverse Reactions: No Known Allergies Allergy (Verified 12/28/17 10:26) Review of Systems Review of Systems: Constitutional: No fevers, chills, sweats, weight loss Eye: No recent visual problems, no blurry vision, no double vision ENMT: No ear pain, nasal congestion, sore throat Respiratory: No shortness of breath, cough, sputum production Cardiovascular: No chest pain, palpitations, syncope Gastrointestinal: No nausea, vomiting, diarrhea, abdominal pain Genitourinary: No hematuria, dysuria, flank or suprapubic pain Daniel/Lymph: Negative for bruising tendency, swollen lymph glands Endocrine: Negative for excessive thirst, excessive hunger, extreme fatigue Musculoskeletal: No back pain, neck pain, muscle pain. Positive for left shoulder soreness and increased "tightness" of the left upper and lower extremities. Integumentary: No rash, pruritus, abrasions Neurologic: No headaches, numbness, speech problems. Positive for focal weakness of the left upper and lower extremities. Psychiatric: No anxiety, depression Physical Exam Vital Signs: Temp Pulse Resp BP Pulse Ox 97.8 F 78 16 137/96 H 95 12/30/17 07:36 12/30/17 07:36 12/30/17 07:36 12/30/17 07:36 12/30/17 07:36 Intake & Output 12/29/17 12/30/17 12/31/17 06:59 06:59 06:59 Intake Total 300 1598 411 Output Total 0 2300 Balance 300 -702 411 Weight 118.6 kg 119.1 kg Exam: General: Awake and Alert. No acute distress. Resting comfortably in bed with his nurse and family members at bedside. Head: Normocephalic. Atraumatic. Eyes: Pupils equal, round, and reactive to light. EOMI. Sclera white. Ears: No drainage noted. Nose: Nares normal & without exudate. Oropharynx: Moist mucous membranes. Neck: Supple movements. Cardiovascular: Regular rate & rhythm. No murmurs, rubs, or gallops appreciated. Pulmonary: Lungs clear to auscultation bilaterally. No increased work of breathing. Gastrointestinal: Abdomen soft, non-tender, non-distended. Normoactive bowel sounds. Skin: Texture and turgor normal. Warm and dry. Psychiatric: Judgement and insight appear to be good. Patient is oriented to date, location, and situation. Affect appropriate. Extremities: Arthritic changes of the hands and feet are noted. There is no tenderness to palpation about the left shoulder and the patient complains of mild soreness with passive range of motion. Neurological: CN III-XII grossly intact. Sensation to light touch is grossly intact. Tone is mildly increased in the left upper and lower extremities. Proprioception is normal. No Nicole's. No Babinski. Speech is fluent with good content and without dysarthria. Muscle Strength: Full 5/5 strength in all major muscle groups of the right- sided extremities. He has 2/5 strength of left elbow flexors but otherwise 0 or 1/5 strength of the remainder of the left upper extremity. He has 4/5 strength of the major muscle groups of the left lower extremity, except 0/5 strength of left ankle dorsiflexors and plantar flexors. Results Laboratory Results: 12/28/17 12/28/17 12/28/17 17:35 17:35 23:40 Creatine Kinase 207 H 178 H CK-MB (CK-2) 2.92 Troponin I 0.041 12/28/17 12/29/17 12/29/17 23:40 05:40 05:40 Creatine Kinase 182 H CK-MB (CK-2) 2.46 2.22 Troponin I 0.052 0.049 Impressions: Head CT 12/28/17 10:33 IMPRESSION: NORMAL BRAIN CT WITHOUT CONTRAST. EVIDENCE OF ACUTE STROKE: NO. Chest X-Ray 12/28/17 10:34 IMPRESSION: NO ACUTE RADIOGRAPHIC FINDING IN THE CHEST. Head MRI 12/28/17 11:45 IMPRESSION: Acute, nonhemorrhagic lacunar infarct right thalamus. EVIDENCE OF ACUTE STROKE: YES. RIGHT MANAGER COMMUNITY. Shoulder X-Ray 12/29/17 00:00 IMPRESSION: 1. No acute osseous findings. 2. Mild acromioclavicular joint arthrosis. 3. If symptoms are persistent, follow-up examination for re-evaluation suggested. Assessment & Plan - Diagnosis (1) Impaired mobility and ADLs Is this a current diagnosis for this admission?: Yes Plan: See plan summary. (2) CVA (cerebral vascular accident) Qualifiers: CVA mechanism: stenosis Precerebral and cerebral artery: posterior cerebral artery Laterality of affected vessel: right Qualified Code(s): I63.531 - Cerebral infarction due to unspecified occlusion or stenosis of right posterior cerebral artery Is this a current diagnosis for this admission?: Yes Plan: See plan summary. (3) Hypertension Qualifiers: Hypertension type: essential hypertension Qualified Code(s): I10 - Essential (primary) hypertension Is this a current diagnosis for this admission?: Yes Plan: See plan summary. - Time Time Spent: Greater than 70 Minutes - Plan Summary Plan Summary: Assessment and Plan: 47-year-old male with right thalamic lacunar CVA resulting in left-sided ( nondominant) hemiparesis. 1. Gait and ADL Dysfunction secondary to right thalamic lacunar CVA resulting in left-sided (nondominant) hemiparesis - Continue PT and OT to maximize mobility, safety, endurance, and self-care. 2. 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 Risk Factor Modification: - Hypertension: Dietary and activity modifications, avoid hypotension and hypertension - Glycemic Control: HgBA1c = 5.7%, continue dietary and activity modifications, avoid hyperglycemia and hypoglycemia - Lipids: LDL is 125, continue dietary and activity modifications, continue statin - Smoking: The patient does not currently smoke, but did discuss the risk of secondhand smoke with him. - Alcohol: Discussed the need to eliminate or reduce alcohol use. - Antiplatelet: The patient is currently being treated with aspirin 81 mg daily and Plavix 75 mg daily. Would consider Plavix alone given that dual antiplatelet therapy has not been shown to reduce risk of recurrent CVA but has been associated with an increased risk of hemorrhagic events. The patient was already on aspirin 81 mg daily previously. Defer to neurology recommendations for final decision. - Cardioembolic Event: Echocardiogram is pending. - Vascular: Carotid duplex is pending. VTE Prophylaxis: - Continue SQ heparin Risk of Shoulder Subluxation: - Educate patient and family on positioning. - Lap tray, if needed. Risk of Spasticity: - Continue ROM, positioning. - Consider starting baclofen 10 mg nightly and titrating as necessary from there. Risk of Contractures: - Continue ROM, positioning. - The patient would benefit from a left lower extremity MD AFO, if available, 4 hours on/4 hours off while in bed. Risk of Constipation: - Continue dietary modifications and encourage fluid intake. - Bowel protocol: Colace 100 mg twice daily, MiraLAX 1 packet daily, and Dulcolax suppository daily as needed. Risk of Neurogenic Bladder/UTI: - Monitor for retention, incontinence, UTI. Risk of Skin Breakdown: - Frequent turning/position changes. - Optimize nutritional status. 3. Accelerated hypertension - Better blood pressure control has been achieved with oral medications. - Continue management per hospitalist medicine. 4. Left shoulder AC joint sprain/arthrosis - Evaluated by orthopedic surgery and recommended pain control with heat/ice - Patient may require joint injection as an outpatient if pain persists 5. Hyperlipidemia - Continue atorvastatin 80 mg nightly - Dietary modifications 6. Disposition -Based on the patient's diagnosis, medical co-morbidities, and current functional status, he is a good candidate for acute inpatient rehabilitation as he would benefit from 3 hours per day of intensive therapies in at least 2 disciplines under the close medical supervision of a physician. The patient is expected to make significant gains in a relatively short period of time to the point that he can safely be discharged home with supervision and assistance from family. Barring any unforeseen events or complications and pending the completion of his workup, there is a plan to admit the patient to [facility] acute inpatient rehabilitation on 12/31/2017. This case was discussed with the patient's acute care therapists and nurse on the floor. Thank you for allowing us to participate in the care of this patient. Please call with any questions. A total of 75 minutes was spent on [id number] communication with the patient and coordination of care.
--- NOTE | 2017-12-30 16:35 | RADIOLOGY REPORT (SQ) ---
EXAM DESCRIPTION: CAROTID DOPPLER COMPLETED DATE/TIME: 12/30/2017 4:19 pm REASON FOR STUDY: CVA COMPARISON: MRI brain 12/28/2017, CT brain 12/28/2017 TECHNIQUE: Grayscale ultrasound, Doppler velocity and spectra, and color Doppler images acquired of the extra-cranial carotid and vertebral arteries. Images stored on PACS. LIMITATIONS: None. FINDINGS: RIGHT CAROTID CCA Velocities: Within normal limits. ICA Velocities Peak systolic 0.68 m/s. End diastolic 0.19 m/s. Proximal ICA/CCA peak systolic ratio 0.8. There is non calcific plaque at the right carotid bifurcation without flow significant stenosis by ve locity criteria. LEFT CAROTID CCA Velocities: Within normal limits. ICA Velocities Peak systolic 0.48 m/s. End diastolic 0.20 m/s. Proximal ICA/CCA peak systolic ratio 1.1. There is non calcific plaque at the left carotid bifurcation without flow significant stenosis by clinton ocity criteria. VERTEBRAL ARTERIES: Antegrade flow. Normal waveforms. SUBCLAVIAN ARTERIES: Not evaluated OTHER: No other significant finding. IMPRESSION: NO HEMODYNAMICALLY SIGNIFICANT STENOSIS at the carotid bifurcation. COMMENT: Quality ID #[id number]: Velocity criteria are extrapolated from the diameter data as defined by t he Society of Radiologists in Ultrasound Consensus Conference. Radiology 2003: 229; 340-346. TECHNICAL DOCUMENTATION: JOB ID: [id number] [employer]- All Rights Reserved Reading location - IP/workstation name: [email or web address]
--- NOTE | 2017-12-30 16:38 | PDOC PROGRESS REPORT ---
Subjective Progress Note for:: 12/30/17 Subjective:: This is a very pleasant 47 years old male patient admitted with chief complaint of sudden onset left arm weakness. MRI of the brain reported as an acute nonhemorrhagic lacunar infarct involving the right thalamus. Patient has been on aspirin Plavix and high intensity dose of Lipitor. This morning evaluated by Dr. Alcaraz who recommended short-term acute rehab. Reason For Visit: ACUTE CEREBROVASCULAR INSUFFICIENCY Physical Exam Vital Signs: Temp Pulse Resp BP Pulse Ox 98.1 F 80 16 149/94 H 95 12/30/17 11:17 12/30/17 11:17 12/30/17 11:17 12/30/17 11:17 12/30/17 11:17 Intake & Output 12/29/17 12/30/17 12/31/17 06:59 06:59 06:59 Intake Total 300 1598 648 Output Total 0 2300 400 Balance 300 -702 248 Weight 118.6 kg 119.1 kg General appearance: PRESENT: no acute distress Eye exam: PRESENT: conjunctiva pink Mouth exam: PRESENT: moist Neck exam: ABSENT: carotid bruit, JVD, lymphadenopathy, thyromegaly Respiratory exam: PRESENT: clear to auscultation irish. ABSENT: rales, rhonchi, wheezes Cardiovascular exam: PRESENT: RRR. ABSENT: diastolic murmur, rubs, systolic murmur GI/Abdominal exam: PRESENT: normal bowel sounds, soft. ABSENT: distended, guarding, mass, organolmegaly, rebound, tenderness Extremities exam: PRESENT: full ROM. ABSENT: calf tenderness, clubbing, pedal edema Neurological exam: PRESENT: alert, awake, oriented to time, oriented to situation, other - Left upper extremity weakness about silver 5 strength Results Laboratory Results: 12/28/17 12/28/17 12/28/17 17:35 17:35 23:40 Creatine Kinase 207 H 178 H CK-MB (CK-2) 2.92 Troponin I 0.041 12/28/17 12/29/17 12/29/17 23:40 05:40 05:40 Creatine Kinase 182 H CK-MB (CK-2) 2.46 2.22 Troponin I 0.052 0.049 Impressions: Head CT 12/28/17 10:33 IMPRESSION: NORMAL BRAIN CT WITHOUT CONTRAST. EVIDENCE OF ACUTE STROKE: NO. Chest X-Ray 12/28/17 10:34 IMPRESSION: NO ACUTE RADIOGRAPHIC FINDING IN THE CHEST. Head MRI 12/28/17 11:45 IMPRESSION: Acute, nonhemorrhagic lacunar infarct right thalamus. EVIDENCE OF ACUTE STROKE: YES. RIGHT JOINT CUTTER. Shoulder X-Ray 12/29/17 00:00 IMPRESSION: 1. No acute osseous findings. 2. Mild acromioclavicular joint arthrosis. 3. If symptoms are persistent, follow-up examination for re-evaluation suggested. Assessment & Plan - Diagnosis (1) Acute ischemic vertebrobasilar artery thalamic stroke involving right-sided vessel Is this a current diagnosis for this admission?: Yes Plan: Patient qualifies for inpatient rehab. Continue aspirin, Plavix and Lipitor (2) Hypertensive emergency Is this a current diagnosis for this admission?: Yes Plan: At presentation patient's blood. Is 250/150. Continue current antihypertensive agents.
--- NOTE | 2017-12-30 17:07 | XCELERA REPORT ---
[address] [address] Transthoracic Echocardiogram Report Name: LUIS M VILLALTA JR Age: 47 yrs Gender: Male : 1970 Patient Status: Inpatient Patient Location: [address] [place] [address] Study Date: 12/30/2017 03:17 PM Procedure: A complete two-dimensional transthoracic echocardiogram was performed (2D, M-mode, spectral and color flow Doppler). The study was technically difficult with many images being suboptimal in quality. Reason For Study: cva Ordering Physician: LUIS OWENS Performed By: Elizabeth Cagle Interpretation Summary The left ventricular ejection fraction is normal. There is mild concentric left ventricular hypertrophy. Doppler measurements suggest pseudonormalized left ventricular relaxation, which is associated with grade II/IV or mild to moderate diastolic dysfunction The left ventricle is grossly normal size. Not all wall segments were well visualized. The right ventricle is normal in size, thickness and function Right ventricular function cannot be assessed due to poor image quality. The right atrium is mildly dilated. The left atrium is mildly dilated. There is a trace amount of mitral regurgitation There is no mitral valve stenosis. No aortic regurgitation is present. There is no aortic valve stenosis There is a trace or physiologic amount of tricuspid regurgitation Tricuspid regurgitation jet envelope not well defined to measure RV systolic pressure accurately. The aortic root is not well visualized but is probably normal size. The inferior vena cava was not well visualized There is no pericardial effusion. MMode/2D Measurements & Calculations IVSd: 1.1 cm LVIDd: 7.2 cm FS: 42.5 % Ao root diam: 3.7 cm LVIDs: 4.1 cm EDV(Teich): 271.6 ml Ao root area: 10.5 cm2 LVPWd: 1.1 cm ESV(Teich): 75.8 ml EF(Teich): 72.1 % Doppler Measurements & Calculations MV E max clinton: MV dec slope: Ao V2 max: LV V1 max P.7 cm/sec 92.0 cm/sec 2.9 mmHg MV A max clinton: 414.9 cm/sec2 Ao max PG: LV V1 max: 68.7 cm/sec MV dec time: 0.18 sec 3.4 mmHg 85.3 cm/sec MV E/A: 1.1 PA V2 max: 89.5 cm/sec PA max P.2 mmHg Left Ventricle The left ventricle is grossly normal size. There is mild concentric left ventricular hypertrophy. The left ventricular ejection fraction is normal. Doppler measurements suggest pseudonormalized left ventricular relaxation, which is associated with grade II/IV or mild to moderate diastolic dysfunction. Not all wall segments were well visualized. Right Ventricle The right ventricle is normal in size, thickness and function. Right ventricular function cannot be assessed due to poor image quality. Atria The right atrium is mildly dilated. The left atrium is mildly dilated. Interarterial septum not well visualized and not well dopplered. Cannot comment on ASD/PFO presence. Mitral Valve The mitral valve is grossly normal. There is no mitral valve stenosis. There is a trace amount of mitral regurgitation. Aortic Valve The aortic valve is not well visualized secondary to technical limitations. There is no aortic valve stenosis. No aortic regurgitation is present. Tricuspid Valve The tricuspid valve is not well visualized secondary to technical limitations. There is no tricuspid stenosis. There is a trace or physiologic amount of tricuspid regurgitation. Tricuspid regurgitation jet envelope not well defined to measure RV systolic pressure accurately. Pulmonic Valve The pulmonic valve is not well visualized. Great Vessels The aortic root is not well visualized but is probably normal size. The inferior vena cava was not well visualized. Effusions There is no pericardial effusion. : LUIS OWENS > Denton Vega
[2017-12-30] MEDS: ATORVASTATIN CALCIUM 80 MG TABLET PO SCH (22:34)
[2017-12-31] MEDS: HYDRALAZINE HCL 50 MG TABLET PO SCH (05:44)
[2017-12-31] MEDS: HEPARIN SOD (PORCINE) 5,000 UNIT/ML 1 ML SYRINGE SUBCUT SCH (05:45)
[2017-12-31] MEDS: TRAMADOL HCL 50 MG TABLET PO PRN (06:47)
[2017-12-31 08:07] VITALS: BP 143/90
--- NOTE | 2017-12-31 08:17 | PDOC TRANSFER SUMMARY ---
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 Is this a current diagnosis for this admission?: Yes (2) Hypertensive emergency Is this a current diagnosis for this admission?: Yes - Transfer Medications Home Medications: Aspirin [Aspirin EC] 81 mg PO DAILY 12/28/17 Ibuprofen [Motrin 800 mg Tablet] 800 mg PO TID 12/28/17 Transfer Medications: Current Medications Acetaminophen (Tylenol 325 Mg Tablet) 650 mg PO Q4HP PRN PRN Reason: Temp greater than 101F Stop: 01/27/18 14:04 Acetaminophen (Tylenol 650 Mg Supp) 650 mg ID Q4HP PRN PRN Reason: Temp greater than 101F Stop: 01/27/18 14:04 Amlodipine Besylate (Norvasc 10 Mg Tablet) 10 mg PO DAILY NEEL Stop: 01/27/18 14:59 Last Admin: 12/30/17 09:22 Dose: 10 mg Aspirin (Ecotrin 81 Mg Ec Tablet) 81 mg PO DAILY NEEL Stop: 01/28/18 09:59 Last Admin: 12/30/17 09:22 Dose: 81 mg Atorvastatin Calcium (Lipitor 80 Mg Tablet) 80 mg PO QHS NEEL Stop: 01/28/18 09:59 Last Admin: 12/30/17 22:34 Dose: 80 mg Clopidogrel Bisulfate (Plavix 75 Mg Tablet) 75 mg PO DAILY NEEL Stop: 01/28/18 09:59 Last Admin: 12/30/17 09:23 Dose: 75 mg Docusate Sodium (Colace 100 Mg Capsule) 100 mg PO BIDP PRN PRN Reason: FOR CONSTIPATION Stop: 01/27/18 14:04 Famotidine (Pepcid 20 Mg Tablet) 20 mg PO Q12 NEEL Stop: 01/27/18 21:59 Last Admin: 12/30/17 22:34 Dose: 20 mg Heparin Sodium (Porcine) (Heparin Inj 5,000 Units/Ml 1 Ml Syringe) 5,000 unit SUBCUT Q8 NEEL Stop: 01/27/18 21:59 Last Admin: 12/31/17 05:45 Dose: 5,000 unit Hydralazine HCl (Apresoline 50 Mg Tablet) 50 mg PO Q8 NEEL Stop: 01/27/18 14:29 Last Admin: 12/31/17 05:44 Dose: 50 mg Losartan Potassium (Cozaar 50 Mg Tablet) 100 mg PO DAILY [facility] Stop: 01/28/18 09:59 Last Admin: 12/30/17 09:22 Dose: 100 mg Magnesium Hydroxide (Milk Of Magnesia 30 Ml Udcup) 30 ml PO HSP PRN PRN Reason: FOR CONSTIPATION Stop: 01/27/18 14:04 Metoprolol Succinate (Toprol Xl 50 Mg Tab.Sr) 200 mg PO DAILY [facility] Stop: 01/28/18 09:59 Last Admin: 12/30/17 09:22 Dose: 200 mg Ondansetron HCl (Zofran Odt 4 Mg Tablet) 4 mg PO Q4HP PRN PRN Reason: FOR NAUSEA/VOMITING Stop: 01/27/18 14:04 Sodium Chloride (Saline Flush 2.5 Ml Monoject Prefil Syrin) 2.5 ml IV Q8 [facility] Stop: 01/27/18 21:59 Last Admin: 12/31/17 05:45 Dose: 2.5 ml Spironolactone (Aldactone 25 Mg Tablet) 25 mg PO DAILY [facility] Stop: 01/28/18 09:59 Last Admin: 12/30/17 09:22 Dose: 25 mg Temazepam (Restoril 15 Mg Capsule) 15 mg PO HSP PRN PRN Reason: SLEEP OR INSOMNIA Stop: 01/04/18 14:04 Last Admin: 12/28/17 23:33 Dose: 15 mg Tramadol HCl (Ultram 50 Mg Tablet) 50 mg PO Q4HP PRN PRN Reason: Pain Scale of 2-3 Stop: 01/04/18 14:04 Last Admin: 12/31/17 06:47 Dose: 50 mg - Allergies Allergies/Adverse Reactions: No Known Allergies Allergy (Verified 12/28/17 10:26) Hospital Course Hospital Course: his is a very pleasant 47 years old male patient admitted with chief complaint of sudden onset left arm weakness. MRI of the brain reported as an acute nonhemorrhagic lacunar infarct involving the right thalamus. Patient has been on aspirin Plavix and high intensity dose of Lipitor. Patient evaluated by Dr. Alcaraz who recommended short-term acute rehab.This morning I seen patient resting on recliner. No new complaint. Physical Exam Vital Signs: Temp Pulse Resp BP Pulse Ox 97.9 F 87 16 143/90 H 95 09/12/18 07:56 12/31/17 07:56 12/31/17 07:56 12/31/17 07:56 12/31/17 07:56 Intake & Output 12/30/17 12/31/17 01/01/18 06:59 06:59 06:59 Intake Total 1598 648 Output Total 2300 900 Balance -702 -252 Weight 119.1 kg 119.5 kg General appearance: PRESENT: no acute distress Head exam: PRESENT: atraumatic Eye exam: PRESENT: conjunctiva pink Mouth exam: PRESENT: moist Neck exam: ABSENT: carotid bruit, JVD, lymphadenopathy, thyromegaly Respiratory exam: PRESENT: clear to auscultation irish. ABSENT: rales, rhonchi, wheezes Cardiovascular exam: PRESENT: RRR. ABSENT: diastolic murmur, rubs, systolic murmur GI/Abdominal exam: PRESENT: normal bowel sounds, soft. ABSENT: distended, guarding, mass, organolmegaly, rebound, tenderness Neurological exam: PRESENT: alert, awake, oriented to time, oriented to situation Psychiatric exam: PRESENT: normal mood Results Laboratory Results: 12/28/17 12/28/17 12/28/17 17:35 17:35 23:40 Creatine Kinase 207 H 178 H CK-MB (CK-2) 2.92 Troponin I 0.041 12/28/17 12/29/17 12/29/17 23:40 05:40 05:40 Creatine Kinase 182 H CK-MB (CK-2) 2.46 2.22 Troponin I 0.052 0.049 Impressions: Head CT 12/28/17 10:33 IMPRESSION: NORMAL BRAIN CT WITHOUT CONTRAST. EVIDENCE OF ACUTE STROKE: NO. Chest X-Ray 12/28/17 10:34 IMPRESSION: NO ACUTE RADIOGRAPHIC FINDING IN THE CHEST. Head MRI 12/28/17 11:45 IMPRESSION: Acute, nonhemorrhagic lacunar infarct right thalamus. EVIDENCE OF ACUTE STROKE: YES. 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 Shoulder X-Ray 12/29/17 00:00 IMPRESSION: 1. No acute osseous findings. 2. Mild acromioclavicular joint arthrosis. 3. If symptoms are persistent, follow-up examination for re-evaluation suggested. Carotid Doppler Study 12/30/17 00:00 IMPRESSION: NO HEMODYNAMICALLY SIGNIFICANT STENOSIS at the carotid bifurcation.
[2017-12-31] MEDS: METOPROLOL SUCCINATE 50 MG TAB.SR.24H PO SCH (09:08)
[2017-12-31] MEDS: AMLODIPINE BESYLATE 10 MG TABLET PO SCH (09:09)
[2017-12-31] MEDS: LOSARTAN POTASSIUM 50 MG TABLET PO SCH (09:09)
[2017-12-31] MEDS: CLOPIDOGREL BISULFATE 75 MG TABLET PO SCH (09:09)
[2017-12-31] MEDS: ASPIRIN 81 MG TABLET, ENT COATED PO SCH (09:09)
[2017-12-31] MEDS: SPIRONOLACTONE 25 MG TABLET PO SCH (09:09)
[2017-12-31] MEDS: FAMOTIDINE 20 MG TABLET PO SCH (09:09)
== END 2017-12-31 10:23 | disposition short-term general hospital (02) | DRG 65 ==
LOC: ER 10:25 → EH 13:44 → 3S 18:30
PROVIDERS: ADMIT Internal Medicine; ATTEND Internal Medicine
DX: I63.8 Other cerebral infarction (principal); I16.1 Hypertensive emergency; G81.94 Hemiplegia, unspecified affecting left nondominant side; M19.012 Primary osteoarthritis, left shoulder; E87.6 Hypokalemia; Z79.82 Long term (current) use of aspirin; F17.210 Nicotine dependence, cigarettes, uncomplicated
CPT/HCPCS: 36415; 70450; 70551; 71045; 80053; 80061; 82550; 82553; 82962; 83036; 84484; 85025; 85610; 85730; 93005; 93010; 93306; 93880; 96365; 99291; J1644; J3490

== ENCOUNTER 2019-10-13 19:53 | Emergency (ER) | payer OTHER ==
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
[2019-10-13 21:44] VITALS: BP 126/82
== END 2019-10-13 21:44 | disposition home or self-care (01) ==
LOC: ER 19:53
DX: S46.211A Strain of muscle, fascia and tendon of other parts of biceps, right arm, initial encounter (principal); M54.5 Low back pain; V48.5XXA Car driver injured in noncollision transport accident in traffic accident, initial encounter; Y93.89 Activity, other specified; I10 Essential (primary) hypertension; Z79.899 Other long term (current) drug therapy
CPT/HCPCS: 72110; 99283